=== PATIENT | female | born 1975 | race Hispanic/Latino ===

== ENCOUNTER 2018-09-18 18:08 | Emergency (ER) | payer OTHER, SELFPAY ==
[2018-09-18] MEDS ORDERED: ACETAMINOPHEN 500 MG TAB ONE (19:21)
[2018-09-18] MEDS ORDERED: IBUPROFEN 200 MG TAB PO ONE (19:21)
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
--- NOTE | 2018-09-18 20:29 | RAD REPORT ---
EXAM DESCRIPTION: RAD - Foot Right 3 View - 09/18/2018 7:50 pm CLINICAL HISTORY: Right foot pain status post injury FINDINGS: Sesamoid adjacent to the medial aspect of the first metatarsal head is in 2 pieces. Each m easures about 6 millimeters. This may represent the normal appearance or a fractured sesamoid and kristen uld be correlated clinically. No dislocation noted
[2018-09-18 21:37] VITALS: BP 151/103
[2018-09-18 21:38] VITALS: TEMP 98.6; O2SAT 97
== END 2018-09-18 20:46 | disposition home or self-care (01) ==
LOC: ER 18:08
DX: M79.671 Pain in right foot (principal); V49.40XA Driver injured in collision with unspecified motor vehicles in traffic accident, initial encounter
CPT/HCPCS: 99284

== ENCOUNTER 2019-02-25 20:05 | Emergency (ER) | payer BC ==
[2019-02-25] MEDS ORDERED: ONDANSETRON 4 MG/2 ML VIAL ONE (20:30)
[2019-02-25] MEDS ORDERED: FENTANYL CITR 100 MCG/2 ML ONE (20:30)
[2019-02-25] MEDS ORDERED: NA CHLORIDE 0.9% 500 ML ONE (21:11)
[2019-02-25] MEDS ORDERED: PROPOFOL 200 MG/20 ML VIAL IV ONE (21:11)
--- NOTE | 2019-02-25 21:44 | ER ---
Nurse's Notes [facility] Name: Kathie Licea Age: 43 yrs Sex: Female : 1975 Arrival Date: 02/25/2019 Time: 20:06 Bed 28 Private MD: Diagnosis: Closed left distal radius fracture Presentation: 02/25 20:16 Presenting complaint: Patient states: playing soccer with daughter, tripped over ball ak1 falling on left wrist. swelling noted to left wrist. ice applied. Transition of care: patient was not received from another setting of care. Onset of symptoms was February 25, 2019. Risk Assessment: Do you want to hurt yourself or someone else? Patient reports no desire to harm self or others. Initial Sepsis Screen: Does the patient meet any 2 criteria? No. Patient's initial sepsis screen is negative. Does the patient have a suspected source of infection? No. Patient's initial sepsis screen is negative. 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 Care prior to arrival: None. 20:16 Acuity: OMAR 4 ak1 20:16 Method Of Arrival: Ambulatory ak1 Triage Assessment: 20:18 General: Appears uncomfortable, Behavior is calm, cooperative. ak1 22:13 Pain: Complains of pain in left arm. EENT:. 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 - Social history:: Smoking status: Patient/guardian denies using tobacco. - Ebola Screening: : No symptoms or risks identified at this time. Screenin:13 Abuse screen: Denies threats or abuse. Denies injuries from another. Nutritional rv screening: No deficits noted. Tuberculosis screening: No symptoms or risk factors identified. Fall Risk None identified. Assessment: 21:00 General: Appears in no apparent distress. uncomfortable, Behavior is calm, cooperative. rv Pain: Complains of pain in left wrist. Neuro: Level of Consciousness is awake, alert, obeys commands, Oriented to person, place, time, situation. Cardiovascular: Patient's skin is warm and dry. 21:00 Respiratory: Airway is patent. GI: No signs and/or symptoms were reported involving the rv gastrointestinal system. : No signs and/or symptoms were reported regarding the genitourinary system. EENT: No signs and/or symptoms were reported regarding the EENT system. Derm: Skin is intact. Musculoskeletal: Bony deformity noted of left wrist Swelling present in left wrist. Vital Signs: 20:15 BP 122 / 73; Pulse 65; Resp 18; Temp 98.3; Pulse Ox 100% on R/A; Weight 86.18 kg (R); ak1 Height 5 ft. 2 in. (157.48 cm) (R); Pain 5/10; 20:15 Body Mass Index 34.75 (86.18 kg, 157.48 cm) ak1 ED Course: 20:06 Patient arrived in ED. ag3 20:14 Saji Colunga MD is Attending Physician. ps1 20:17 Triage completed. ak1 20:18 Arm band placed on Patient placed in an exam room, on a stretcher, on pulse oximetry, ak1 Patient notified of wait time. Affected limb iced. Affected limb elevated. 20:35 Inserted saline lock: 20 gauge in right antecubital area, using aseptic technique. aa1 Blood collected. 20:59 XRAY Forearm LEFT In Process Unspecified. EDMS 20:59 Jeremías Santiago, PRABHU is Primary Nurse. rv 21:00 Patient has correct armband on for positive identification. Bed in low position. Call rv light in reach. Side rails up X 1. Pulse ox on. NIBP on. 21:25 Assist provider with fracture care of left arm Fracture is closed. Obvious deformity is rv noted. Circulation, motor and sensation is intact. Set up for procedure. Performed by Saji Colunga MD Reduced with physical manipulation. Immobilized with sugar tong orthoglass splint applied. Post immobilization, circulation, motor and sensation remain intact. Patient tolerated well. 21:42 Zeeshan Lemons MD is Referral Physician. ps1 21:42 Nacho wrap to left elbow and left wrist Orthoglass splint: Sugar tong splint applied on jp3 left arm. 21:43 Sling applied to left arm. jp3 22:04 Forearm Left XRAY In Process Unspecified. EDMS 22:16 IV discontinued, intact, bleeding controlled, No redness/swelling at site. Pressure rv dressing applied. Administered Medications: 20:38 Drug: Zofran 4 mg Route: IVP; Site: right antecubital; aa1 22:10 Follow up: Response: No adverse reaction rv 20:40 Drug: fentaNYL (PF) 50 mcg Route: IVP; Site: right antecubital; aa1 22:11 Follow up: Response: RASS: Alert and Calm (0) rv 21:25 Drug: fentaNYL (PF) 50 mcg Route: IVP; Site: right antecubital; aa1 22:10 Follow up: Response: RASS: Alert and Calm (0) rv 21:25 Drug: Propofol 50 mg Route: IVP; Site: right antecubital; aa1 22:11 Follow up: Response: No adverse reaction rv 21:27 Drug: Propofol 50 mg Route: IVP; Site: right antecubital; aa1 22:11 Follow up: Response: No adverse reaction rv Outcome: 21:43 Discharge ordered by MD. ps1 22:15 Discharged to home ambulatory. rv 22:15 Condition: good 22:15 Discharge instructions given to patient, Instructed on discharge instructions, follow up and referral plans. medication usage, Demonstrated understanding of instructions, follow-up care, medications, splint care, Prescriptions given X 3. 22:17 Patient left the ED. rv Signatures: Dispatcher [employer] EDMS Nesha Strong RN RN [email or web address] Katty Yadav RN RN [email or web address] Saji Colunga MD MD ps1 Jeremías Santiago RN RN rv Denilson Brooks jp3 Aleksandra Zazueta ag3 Corrections: (The following items were deleted from the chart) 22:16 21:25 Assist provider with fracture care of left arm Fracture is closed. Obvious rv deformity is noted. Circulation, motor and sensation is intact. Set up for procedure. Performed by Saji Colunga MD Reduced with physical manipulation. Immobilized with sugar tong orthoglass splint applied. Post immobilization, circulation, motor and sensation remain intact. Patient tolerated well. aa1
--- NOTE | 2019-02-25 21:45 | EDPHYS ---
Physician Documentation [facility] Name: Kathie Licea Age: 43 yrs Sex: Female : 1975 Arrival Date: 02/25/2019 Time: 20:06 Bed 28 Private MD: ED Physician Saji Colunga HPI: 02/25 21:33 This 43 yrs old Female presents to ER via Ambulatory with complaints of Arm ps1 Injury. 21:33 patient was playing soccer with daughter and fell. Has deformity of left wrist. Pain ps1 rated as moderate and worse with movement. NV intact distally. No medical problems currently treated. No LOC. No allergies. No problems with previous surgeries. No problems with anesthesia. . 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 - Social history:: Smoking status: Patient/guardian denies using tobacco. - Ebola Screening: : No symptoms or risks identified at this time. ROS: 21:35 Constitutional: Negative for fever, chills, and weight loss, Eyes: Negative for injury, ps1 pain, redness, and discharge, Cardiovascular: Negative for chest pain, palpitations, and edema, Respiratory: Negative for shortness of breath, cough, wheezing, and pleuritic chest pain, Abdomen/GI: Negative for abdominal pain, nausea, vomiting, diarrhea, and constipation, Skin: Negative for injury, rash, and discoloration, Neuro: Negative for headache, weakness, numbness, tingling, and seizure. 21:35 MS/extremity: Positive for injury or acute deformity, deformity, pain, swelling, of the left wrist. Exam: 21:35 Constitutional: This is a well developed, well nourished patient who is awake, alert, ps1 and in no acute distress. Head/Face: Normocephalic, atraumatic. Eyes: Pupils equal round and reactive to light, extra-ocular motions intact. Lids and lashes normal. Conjunctiva and sclera are non-icteric and not injected. Neck: Trachea midline, no thyromegaly or masses palpated, and no cervical lymphadenopathy. Supple, full range of motion without nuchal rigidity, or vertebral point tenderness. No Meningismus. Chest/axilla: Normal chest wall appearance and motion. Nontender with no deformity. No lesions are appreciated. Cardiovascular: Regular rate and rhythm. No gallops, murmurs, or rubs. Normal PMI, no JVD. No pulse deficits. Respiratory: Lungs have equal breath sounds bilaterally, clear to auscultation and percussion. No rales, rhonchi or wheezes noted. No increased work of breathing, no retractions or nasal flaring. Abdomen/GI: Soft, non-tender, with normal bowel sounds. No distension or tympany. No guarding or rebound. No evidence of tenderness throughout. Skin: Warm, dry with normal turgor. Normal color with no rashes, no lesions, and no evidence of cellulitis. Neuro: Awake and alert, GCS 15, oriented to person, place, time, and situation. Cranial nerves II-XII grossly intact. Sensory grossly intact. 21:35 Musculoskeletal/extremity: Extremities: grossly normal except: noted in the left wrist: deformity, pain, tenderness, NV intact distally. Vital Signs: 20:15 BP 122 / 73; Pulse 65; Resp 18; Temp 98.3; Pulse Ox 100% on R/A; Weight 86.18 kg (R); ak1 Height 5 ft. 2 in. (157.48 cm) (R); Pain 5/10; 20:15 Body Mass Index 34.75 (86.18 kg, 157.48 cm) ak1 Procedures: 21:36 Moderate sedation: Pre-procedure assessment: ASA physical classification: I - healthy, ps1 no underlying organic disease, Airway assessment: able to hyperextend neck, able to maintain airway, can open mouth without difficulty, Mallampati classification of tongue size: I - faucial pillars, soft palate, and uvula can be fully visualized, Monitoring during procedure: air sampling and monitoring, continuous pulse oximetry, nurse at bedside at all times, Medications employed: Fentanyl, 50 mcg(s), Propofol 100mg, Post-procedure assessment: the patient is moderately sedated, Respiratory status: even and unlabored, a reversal agent was not used. MDM: 21:41 Patient medically screened. ps1 21:41 Data reviewed: vital signs, nurses notes, radiologic studies, and as a result, I will ps1 discharge patient. Counseling: I had a detailed discussion with the patient and/or guardian regarding: the historical points, exam findings, and any diagnostic results supporting the discharge/admit diagnosis, radiology results, the need for outpatient follow up, for definitive care, a orthopedic surgeon, to return to the emergency department if symptoms worsen or persist or if there are any questions or concerns that arise at home. 02/25 20:29 Order name: XRAY Forearm LEFT em1 02/25 21:33 Order name: Forearm Left XRAY ps1 02/25 20:42 Order name: IV Saline Lock; Complete Time: 20:42 aa1 Administered Medications: 20:38 Drug: Zofran 4 mg Route: IVP; Site: right antecubital; aa1 22:10 Follow up: Response: No adverse reaction rv 20:40 Drug: fentaNYL (PF) 50 mcg Route: IVP; Site: right antecubital; aa1 22:11 Follow up: Response: RASS: Alert and Calm (0) rv 21:25 Drug: fentaNYL (PF) 50 mcg Route: IVP; Site: right antecubital; aa1 22:10 Follow up: Response: RASS: Alert and Calm (0) rv 21:25 Drug: Propofol 50 mg Route: IVP; Site: right antecubital; aa1 22:11 Follow up: Response: No adverse reaction rv 21:27 Drug: Propofol 50 mg Route: IVP; Site: right antecubital; aa1 22:11 Follow up: Response: No adverse reaction rv Disposition: 02/25/19 21:43 Discharged to Home. Impression: Closed left distal radius fracture. - Condition is Stable. - Discharge Instructions: Forearm Fracture. - Prescriptions for Robaxin 500 mg Oral Tablet - take 2 tablet by ORAL route every 6 hours As needed; 40 tablet. Tylenol- Codeine #3 300-30 mg Oral Tablet - take 2 tablet by ORAL route every 6 hours As needed; 30 tablet. Zofran 4 mg Oral Tablet - take 1 tablet by ORAL route every 12 hours As needed; 20 tablet. - Medication Reconciliation Form, Thank You Letter, Antibiotic Education, Prescription Opioid Use form. - Follow up: Zeeshan Lemons MD; When: 1 - 2 days; Reason: Further diagnostic work-up, Recheck today's complaints, Continuance of care, Re-evaluation by your physician. Follow up: Emergency Department; When: As needed; Reason: Worsening of condition, pain and discoloration of fingers. - Problem is new. - Symptoms have improved. Signatures: Dispatcher [employer] EDNesha Walden RN RN aa1 Katty Yadav RN RN ak1 Saji Colunga MD MD ps1 Jreemías Santiago RN RN rv Corrections: (The following items were deleted from the chart) 22:17 21:43 02/25/2019 21:43 Discharged to Home. Impression: Closed left distal radius rv fracture. Condition is Stable. Forms are Medication Reconciliation Form, Thank You Letter, Antibiotic Education, Prescription Opioid Use. Follow up: Zeeshan Lemons; When: 1 - 2 days; Reason: Further diagnostic work-up, Recheck today's complaints, Continuance of care, Re-evaluation by your physician. Follow up: Emergency Department; When: As needed; Reason: Worsening of condition, pain and discoloration of fingers. Problem is new. Symptoms have improved. ps1
[2019-02-25 23:04] VITALS: BP 122/73; TEMP 98.3; O2SAT 100
--- NOTE | 2019-02-26 06:26 | RAD REPORT ---
EXAM DESCRIPTION: RAD - Forearm Left - 02/25/2019 8:53 pm CLINICAL HISTORY: Trip and fall, arm pain COMPARISON: None. FINDINGS: Transverse fracture of the distal left radial metaphysis is present. There is 20 degrees v entral angulation deformity as well as impaction along the ventral margin. A few small fracture fragm ents are present along the lateral margin of the fracture. Ulna styloid is obscured. Carpal bones tyshawn ntain normal positioning. Soft tissue swelling is present around the fracture site. No foreign body i n the soft tissues. IMPRESSION: Distal left radius fracture as detailed.
--- NOTE | 2019-02-26 06:27 | RAD REPORT ---
EXAM DESCRIPTION: RAD - Forearm Left - 02/25/2019 9:58 pm CLINICAL HISTORY: Fracture, post reduction COMPARISON: Left forearm February 25 FINDINGS: Anatomic positioning of the distal left radius fracture has been improved since prior imag ing. Ulna styloid fracture is now evident. No displacement. Remainder the forearm is unremarkable.
== END 2019-02-25 22:17 | disposition home or self-care (01) ==
LOC: ER 20:05
DX: S52.502A Unspecified fracture of the lower end of left radius, initial encounter for closed fracture (principal); W01.0XXA Fall on same level from slipping, tripping and stumbling without subsequent striking against object, initial encounter; Y93.66 Activity, soccer; Y92.9 Unspecified place or not applicable
CPT/HCPCS: 73090 ×2; 96375; 96374; 99285; J2704; J3010; J2405